=== PATIENT | female | born 1960 | race Asian ===

== ENCOUNTER 2022-10-23 07:08 | Inpatient (IN) | payer BC ==
[2022-10-23 09:03] LABS: BASO % 0.5 % (0-2.0); EOS % 0.2 % (0-4.5); HEMATOCRIT 33.5 % (32.4-45.2); HEMOGLOBIN 11.8 GM/dL (10.7-15.3); MCH 29.1 pg (25.7-33.7); MCHC 35.4 g/dl (32.0-36.0); MEAN CELL VOLUME 82.2 fl (80-96); MEAN PLT VOLUME 7.2 fl (7.5-11.1); MONO % 3.9 % (3.8-10.2); NEUT % 78.4 % (42.8-82.8); PLATELET COUNT 299 10^3/uL (134-434); RBC 4.07 M/mm3 (3.60-5.2); WHITE BLOOD COUNT 8.6 K/mm3 (4.0-10.0)
[2022-10-23 09:25] LABS: CHLORIDE 79 mmol/L (98-107)
[2022-10-23 09:29] LABS: ALBUMIN 4.1 g/dl (3.4-5.0); BLOOD UREA NITROGEN 15.8 mg/dL (7-18); CALCIUM 8.8 mg/dL (8.5-10.1); CO2 25 mmol/L (21-32); GLUCOSE,RANDOM 172 mg/dL (74-106)
[2022-10-23 09:32] LABS: CREATININE 0.8 mg/dL (0.55-1.3); SGOT/AST 20 U/L (15-37); SGPT/ALT 24 U/L (13-61)
[2022-10-23 09:34] LABS: BILIRUBIN,TOTAL 1.1 mg/dL (0.2-1); TOT PROT 7.4 g/dl (6.4-8.2)
[2022-10-23 09:35] LABS: ALK PHOS 84 U/L (45-117)
[2022-10-23 09:44] LABS: ANION GAP 13 MMOL/L (8-16); SODIUM 118 mmol/L (136-145)
[2022-10-23] MEDS ORDERED: SODIUM CHLORIDE 1,000 ML IV STA (09:48)
[2022-10-23 13:06] LABS: EPI CELLS 7 /uL (0-25.1); HYALINE CASTS 0 /uL (0-3.1); URINE APPEARANCE CLEAR; URINE BACTERIA 4 /uL (0-1359); URINE BILIRUBIN NEGATIVE (NEGATIVE); URINE COLOR YELLOW; URINE GLUCOSE (UA) NEGATIVE (NEGATIVE); URINE KETONE TRACE (NEGATIVE); URINE LEUK ESTERASE NEGATIVE (NEGATIVE); URINE NITRITE NEGATIVE (NEGATIVE); URINE PROTEIN TRACE (NEGATIVE); URINE RBC 22 /uL (0-23.9); URINE UROBILINOGEN 0.2 mg/dL (0.2-1.0); URINE WBC 2 /uL (0-25.8)
[2022-10-23 18:04] LABS: CHLORIDE 86 mmol/L (98-107); SODIUM 122 mmol/L (136-145)
[2022-10-23 18:05] LABS: CALCIUM 8.8 mg/dL (8.5-10.1)
[2022-10-23 18:06] LABS: ANION GAP 12 MMOL/L (8-16); BLOOD UREA NITROGEN 13.1 mg/dL (7-18); CO2 24 mmol/L (21-32); GLUCOSE,RANDOM 269 mg/dL (74-106)
[2022-10-23 18:09] LABS: CREATININE 0.9 mg/dL (0.55-1.3)
[2022-10-23] MEDS: INSULIN SLIDING SCALE (NOVOLOG) 1 VIAL SQ SCH ×2 (18:42→21:05)
[2022-10-23] MEDS ORDERED: SODIUM CHLORIDE 1 GM TABLET PO ONE (18:47)
[2022-10-23] MEDS: EZETIMIBE 10 MG TABLET (FP) PO SCH (21:07)
[2022-10-23] MEDS: CARVEDILOL 6.25 MG TABLET (FP) PO SCH (21:07)
[2022-10-23] MEDS: HEPARIN NA (PORCINE) 5,000 UNITS/ML 1ML VIAL SQ SCH (21:07)
[2022-10-24] MEDS: INSULIN SLIDING SCALE (NOVOLOG) 1 VIAL SQ SCH ×4 (06:18→21:34)
[2022-10-24] MEDS: LOSARTAN POTASSIUM 50 MG TABLET PO SCH (09:53)
[2022-10-24] MEDS: CARVEDILOL 6.25 MG TABLET (FP) PO SCH ×2 (09:53→21:34)
[2022-10-24] MEDS: HEPARIN NA (PORCINE) 5,000 UNITS/ML 1ML VIAL SQ SCH (09:54)
[2022-10-24] MEDS ORDERED: PANTOPRAZOLE 40 MG TABLET PO SCH (10:00)
[2022-10-24] MEDS ORDERED: SODIUM CHLORIDE 1 GM TABLET PO SCH (10:00)
[2022-10-24] MEDS ORDERED: LOSARTAN POTASSIUM 50 MG TABLET PO SCH (10:00)
[2022-10-24 11:16] LABS: CALCIUM 8.9 mg/dL (8.5-10.1)
[2022-10-24 11:17] LABS: BLOOD UREA NITROGEN 19.8 mg/dL (7-18)
[2022-10-24 11:22] VITALS: BMI 26.3
[2022-10-24] MEDS: EZETIMIBE 10 MG TABLET (FP) PO SCH (21:34)
[2022-10-25] MEDS: INSULIN SLIDING SCALE (NOVOLOG) 1 VIAL SQ SCH ×2 (06:57→12:00)
[2022-10-25 07:46] LABS: CALCIUM 9.4 mg/dL (8.5-10.1)
[2022-10-25 07:47] LABS: BLOOD UREA NITROGEN 29.5 mg/dL (7-18); MAGNESIUM 1.9 mg/dL (1.8-2.4)
[2022-10-25 07:49] LABS: PHOSPHOROUS 3.8 mg/dL (2.5-4.9)
[2022-10-25 07:51] LABS: BILIRUBIN,TOTAL 0.6 mg/dL (0.2-1); TOT PROT 7.4 g/dl (6.4-8.2)
[2022-10-25 08:05] LABS: HEMATOCRIT 35.7 % (32.4-45.2); HEMOGLOBIN 12.1 GM/dL (10.7-15.3); MCH 28.7 pg (25.7-33.7); MCHC 33.8 g/dl (32.0-36.0); MEAN PLT VOLUME 7.5 fl (7.5-11.1); PLATELET COUNT 330 10^3/uL (134-434); RDW 12.8 % (11.6-15.6); WHITE BLOOD COUNT 6.3 K/mm3 (4.0-10.0)
[2022-10-25] MEDS: LOSARTAN POTASSIUM 50 MG TABLET PO SCH (09:49)
[2022-10-25] MEDS: CARVEDILOL 6.25 MG TABLET (FP) PO SCH (09:49)
[2022-10-25] MEDS ORDERED: ENOXAPARIN NA (PORCINE) 40 MG/0.4 ML DISP.SYRIN SQ SCH (10:00)
[2022-10-25 14:30] VITALS: BP 117/66; PULSE 93; RESP 20; TEMP 98
== END 2022-10-25 14:41 | disposition home or self-care (01) | DRG 305 ==
LOC: JER 07:08 → JERBED 12:29 → UNDOADMOB 12:29 → INTOOBSV 12:29 → UNDOADMIN 12:29 → J4W 15:51 → JERBED 15:51 → UNDOADMOB 16:11 → J4W 16:11 → OBSVTOIN 10-24 11:04 → INTOOBSV 10-24 11:04
PROVIDERS: ADMIT Internal Medicine; ATTEND Internal Medicine
DX: I16.0 Hypertensive urgency (principal); E87.1 Hypo-osmolality and hyponatremia; E78.5 Hyperlipidemia, unspecified; E11.9 Type 2 diabetes mellitus without complications
CPT/HCPCS: 0241U-QW; 36415; 70450-TC; 71046-TC-FY; 80048; 80053; 80307; 81003; 82570; 82962; 83036; 83735; 83930; 83935; 84100; 84295; 84300; 84439; 84443; 84479; 84481; 84484; 85025; 85027; 93005; 93010; 99285-25; J1644